=== PATIENT | female | born 1945 | race Caucasian/White ===

== ENCOUNTER 2018-03-05 14:03 | Outpatient (CLI) | payer MEDICARE ==
--- NOTE | 2018-03-06 11:45 | MMO ---
SCREENING MAMMOGRAPHY: 03/06/2018 HISTORY: Screening mammogram. COMPARISON: 03/03/2017 and 01/29/2015 FINDINGS: The patient's mammogram is interpreted with the assistance of computer aided detection. Scattered fibroglandular densities are noted. Intramammary nodes are noted on the right. Bilateral benign appearing microcalcifications are seen. No dominant mass or architectural distortion. No concerning microcalcifications are noted. IMPRESSION: BI-RADS Category 2: Benign findings. Recommend annual screening mammogram. POS: [facility]
== END 2018-03-05 14:04 | disposition home or self-care (01) ==
LOC: SCSMAMMO 14:03
PROVIDERS: ATTEND Family Medicine
DX: Z12.31 Encounter for screening mammogram for malignant neoplasm of breast (principal)
CPT/HCPCS: 77067